=== PATIENT | female | born 1955 ===

== ENCOUNTER 2020-08-29 05:20 | Day surgery (SDC) | payer OTHER ==
[~2020-08-29 05:20] MED LIST: CARAF PO; NEXIUM PO; NORVAS PO; PROZ PO; VITAMIN D PO; [UNRECOGNIZED DRUG - OTHER] PO
[2020-08-29] MEDS ORDERED: TRAM1TAB98 PO (08:33)
[2020-08-29] MEDS ORDERED: DUI500 PO (08:33)
== END 2020-08-29 15:30 | disposition home or self-care (01) ==
LOC: CIR.AMB 05:20
PROVIDERS: ATTEND Orthopaedic Surgery Sports Medicine
DX: M23.222 Derangement of posterior horn of medial meniscus due to old tear or injury, left knee (principal); M65.862 Other synovitis and tenosynovitis, left lower leg; Z20.822 Contact with and (suspected) exposure to COVID-19

== ENCOUNTER 2023-12-31 07:00 | Inpatient (IN) | payer OTHER ==
[~2023-12-31 07:00] MED LIST changes: +DUI500 PO; +TRAM1TAB98 PO
[2023-12-31 08:37] LABS: HEMATOCRIT 39.3 % (36.0-45.00); HEMOGLOBIN 13.1 g/dL (12.0-15.00); MEAN CELL VOLUME 72.7 fL (80.00-100.00); MEAN CORPUSCULAR HEMOGLOBIN 24.3 pg (27.00-32.0); MEAN CORPUSCULAR HGB CONC 33.4 g/dl (32.0-36.0); PLATELET COUNT 252 K/uL (150-450)
[2023-12-31 08:47] LABS: PH,URINE 6.5 (5.0-8.0); URINE APPEARANCE Clear; URINE BILIRRUBIN Negative (NEGATIVE); URINE BLOOD Negative; URINE COLOR Yellow; URINE GLUCOSE Negative (NEGATIVE); URINE KETONE Negative (NEGATIVE); URINE LEUKOCYTE Negative; URINE NITRATE Negative; URINE PROTEIN Negative (NEGATIVE)
[2023-12-31 08:50] LABS: URINE BACTERIA 21.4 uL (0.0-1933); URINE EPITHELIAL CELLS 16.6 uL (0.0-38.8); URINE RBC 4.5 uL (0.0-20.8); URINE WBC 7.8 uL (0.0-23.2)
[2023-12-31 09:14] LABS: INR 0.95; PARTIAL THROMBOPLASTIN TIME 28.8 SECONDS (22.0-34.0); PROTHROMBIN TIME 10.4 SECONDS (9.0-11.5)
[2023-12-31 09:20] LABS: CALCIUM 9.2 mg/dL (8.5-10.1); CREATININE SERUM 0.87 mg/dL (0.55-1.02); GFR 65.14; POTASSIUM 4.38 mEq/L (3.5-5.1)
[2023-12-31 09:30] LABS: URINE CAST 0.15 uL (0.0-1.40)
[2024-01-06] MEDS ORDERED: TRANEXAMIC ACID 100MG/1ML (1000MG) AMPUL IV ONE (09:48)
[2024-01-06] MEDS ORDERED: CEFAZOLIN SODIUM 1,000 MG VIAL ONE ×3 (09:48→19:03)
[2024-01-06] MEDS ORDERED: METHYLPREDNISOLONE ACETATE 80 MG/ML VIAL ONE (10:51)
[2024-01-06] MEDS ORDERED: VANCOMYCIN HCL 1,000 MG VIAL ONE (10:52)
[2024-01-06] MEDS ORDERED: KETOROLAC TROMETHAMINE 60 MG VIAL IM ONE (10:52)
[2024-01-06] MEDS ORDERED: BUPIVACAINE HCL/Mpf 0.5% 10ML VIAL ONE (10:53)
[2024-01-06] MEDS ORDERED: LIDOCAINE HCL 1%/EPINEPHRINE 20ML VIAL IJ ONE (10:53)
[2024-01-06] MEDS ORDERED: POLYMYXIN B SULFATE 500,000 U VIAL ONE ×2 (10:57→11:04)
[2024-01-06] MEDS ORDERED: CEFAZOLIN SODIUM 1,000 MG VIAL IV SCH ×2 (11:45→18:00)
[2024-01-06] MEDS ORDERED: ISOPROPYL ALCOHOL 30 ML OUNCE TOP NR (11:45)
[2024-01-06] MEDS ORDERED: TRANEXAMIC ACID 100MG/1ML (1000MG) AMPUL IV SCH ×3 (11:45→12:15)
[2024-01-06] MEDS ORDERED: POVIDONE-IODINE 0.75 OZ PACKET TOP SCH (12:15)
[2024-01-06] MEDS ORDERED: ONDANSETRON HCL 2 MG/ML VIAL IV PRN (13:00)
[2024-01-06] MEDS ORDERED: MORPHINE SULFATE 4 MG/ML CARTRIDGE IV PRN (13:00)
[2024-01-06] MEDS ORDERED: MORPHINE SULFATE 2 MG/ML CARTRIDGE IV NR (13:00)
[2024-01-06] MEDS ORDERED: SODIUM CHLORIDE 0.45 % 1,000 ML IV SCH (13:00)
[2024-01-06] MEDS ORDERED: MORPHINE SULFATE 4 MG/ML VIAL IV ONE ×2 (14:15→14:45)
[2024-01-06] MEDS ORDERED: ONDANSETRON HCL 2 MG/ML VIAL ONE (14:36)
[2024-01-06 15:02] LABS: HEMATOCRIT 35.3 % (36.0-45.00); HEMOGLOBIN 11.9 g/dL (12.0-15.00); RED BLOOD COUNT 4.82 M/uL (4.00-6.00)
[2024-01-06 18:15] VITALS: BP 143/65; O2SAT 96
[2024-01-06] MEDS ORDERED: GENTAMICIN SULFATE 40 MG/ML VIAL IV SCH (21:00)
[2024-01-07] VITALS: BP 139/83; O2SAT 95
[2024-01-07 07:31] LABS: HEMATOCRIT 36.9 % (36.0-45.00); HEMOGLOBIN 12.2 g/dL (12.0-15.00); MEAN CELL VOLUME 73.9 fL (80.00-100.00); MEAN CORPUSCULAR HEMOGLOBIN 24.5 pg (27.00-32.0); MEAN CORPUSCULAR HGB CONC 33.2 g/dl (32.0-36.0); PLATELET COUNT 225 K/uL (150-450); RED BLOOD COUNT 4.99 M/uL (4.00-6.00)
[2024-01-07] MEDS ORDERED: OxyCODONE HCL/APAP UD (PERCOCET) PO PRN (08:45)
[2024-01-07] MEDS ORDERED: IRON FUM,PS/FOLIC/BCOMP,C NO.9 1 CAP CAPSULE PO SCH (09:00)
[2024-01-07] MEDS ORDERED: RIVAROXABAN 10 MG TAB PO SCH (09:00)
[2024-01-07] MEDS ORDERED: BACITRACIN 28.35 GM OINT.TUBE TOP SCH (09:00)
[2024-01-07] MEDS ORDERED: AMLODIPINE BESYLATE 5 MG TABLET PO SCH (09:00)
[2024-01-07] MEDS ORDERED: SENNA/DOCUSATE SODIUM 1 TAB TABLET PO SCH (09:00)
[2024-01-07 09:40] VITALS: BP 129/75; O2SAT 98
[2024-01-07 16:00] VITALS: BP 166/70; O2SAT 95
[2024-01-08] VITALS: BP 136/64; O2SAT 95
[2024-01-08 08:00] VITALS: BP 160/84; O2SAT 97
[2024-01-08 08:04] LABS: HEMATOCRIT 33.4 % (36.0-45.00); HEMOGLOBIN 11.3 g/dL (12.0-15.00); MEAN CORPUSCULAR HEMOGLOBIN 24.5 pg (27.00-32.0); PLATELET COUNT 215 K/uL (150-450); RED BLOOD COUNT 4.63 M/uL (4.00-6.00)
[2024-01-08] MEDS ORDERED: OXYC1TAB9 PO (08:09)
[2024-01-08] MEDS ORDERED: Septra Ds Tablet PO (08:09)
[2024-01-08] MEDS ORDERED: XARELTO10 MG PO (08:09)
[2024-01-08] MEDS ORDERED: INTEGRA PLUS C1 EACH PO (08:09)
[2024-01-08] MEDS ORDERED: SULFAMETHOXAZOLE/TRIMETHOPRIM DS 1 TAB PO SCH (09:00)
[2024-01-08 17:00] VITALS: BP 164/75; O2SAT 97
== END 2024-01-08 18:51 | disposition home or self-care (01) | DRG 470 ==
LOC: O/R 01-06 07:00 → SURH 01-06 07:00
PROVIDERS: ADMIT Orthopaedic Surgery Sports Medicine; ATTEND Orthopaedic Surgery Sports Medicine
PROC: 0SRC0J9 Replacement of Right Knee Joint with Synthetic Substitute, Cemented, Open Approach (ICD-10-PCS; principal; 2024-01-06 10:30)
DX: M17.11 Unilateral primary osteoarthritis, right knee (principal); I10 Essential (primary) hypertension